=== PATIENT | female | born 1985 | race Caucasian/White ===

== ENCOUNTER 2019-12-01 09:57 | Emergency (ER) | payer OTHER ==
[~2019-12-01] VITALS: Ht 154.9 cm; Wt 52.2 kg
--- NOTE | 2019-12-01 10:10 | NUR ---
DAVID PELAEZ AT BEDSIDE FOR MSE.
[2019-12-01] MEDS ORDERED: AZITHROMYCIN 250 MG TABLET PO ONE (10:15)
[2019-12-01] MEDS ORDERED: AZITHROMYCIN 250 MG TABLET ONE (10:18)
[2019-12-01 10:21] VITALS: BP 105/60
--- NOTE | 2019-12-01 10:21 | NUR ---
Patient discharged to home in stable conditon. Written and verbal after care instructions given. Patient verbalizes understanding of instructions. ALL BELONGINGS W/ PT. PT SELF-AMBULATED W/O DIFFICULTY.
== END 2019-12-01 10:21 | disposition home or self-care (01) ==
LOC: ER 09:57
DX: J02.9 Acute pharyngitis, unspecified (principal)
CPT/HCPCS: A4663; Q0144